=== PATIENT | female | born 1955 | race Caucasian/White ===

== ENCOUNTER 2019-07-11 10:05 | Emergency (ER) | payer OTHER ==
[~2019-07-11] VITALS: Ht 172.7 cm; Wt 89.8 kg
[~2019-07-11 10:05] MED LIST: INTESTINEX1 CAP PO
[2019-07-11] MEDS ORDERED: MEDROLPACK PO (15:10)
[2019-07-11] MEDS ORDERED: KETOROLAC TROME10 MG PO (15:10)
[2019-07-11] MEDS ORDERED: ORPHENADRINE C100 MG PO (15:10)
== END 2019-07-11 15:26 | disposition home or self-care (01) ==
LOC: ER 10:05
DX: R10.84 Generalized abdominal pain (principal)

== ENCOUNTER 2019-09-16 07:58 | Emergency (ER) | payer OTHER ==
[~2019-09-16] VITALS: Ht 172.7 cm; Wt 89.8 kg
[~2019-09-16 07:58] MED LIST changes: +KETOROLAC TROME10 MG PO; +MEDROLPACK PO; +ORPHENADRINE C100 MG PO
[2019-09-16] MEDS ORDERED: ACID REDUCER20 M1 (08:13)
[2019-09-16] MEDS ORDERED: AVAPRO75 MG (08:14)
[2019-09-16] MEDS ORDERED: ZYRTEC10 M3 (08:14)
[2019-09-16] MEDS ORDERED: TENORMIN50 M1 (08:15)
[2019-09-16] MEDS ORDERED: ASPIR 8181 MG (08:15)
[2019-09-16] MEDS ORDERED: MONTELUKAST SODI4 M1 (08:15)
[2019-09-16] MEDS ORDERED: PROAIR HFA8.5 GM (08:16)
[2019-09-16] MEDS ORDERED: QVAR REDIHALE10.6 G1 (08:17)
== END 2019-09-16 17:32 | disposition home or self-care (01) ==
LOC: ER 07:58
DX: K52.9 Noninfective gastroenteritis and colitis, unspecified (principal); K64.4 Residual hemorrhoidal skin tags

== ENCOUNTER 2023-04-23 23:11 | Emergency (ER) | payer OTHER ==
[~2023-04-23] VITALS: Ht 175.3 cm; Wt 103.0 kg
[~2023-04-23 23:11] MED LIST changes: +ACID REDUCER20 M1; +ASPIR 8181 MG; +AVAPRO75 MG; +MONTELUKAST SODI4 M1; +PROAIR HFA8.5 GM; +QVAR REDIHALE10.6 G1; +TENORMIN50 M1; +ZYRTEC10 M3
[2023-04-24] MEDS ORDERED: NABUMETONE750 MG PO (08:18)
== END 2023-04-24 08:23 | disposition home or self-care (01) ==
LOC: ER 23:11
DX: K63.89 Other specified diseases of intestine (principal); R10.32 Left lower quadrant pain; I10 Essential (primary) hypertension; Z88.1 Allergy status to other antibiotic agents; Z88.2 Allergy status to sulfonamides